=== PATIENT | male | born 1930 | race Caucasian/White ===

== ENCOUNTER 2019-05-07 18:53 | Observation (INO) | payer MEDICARE ==
[2019-05-07 19:23] LABS: Blood, Urine Large (Negative); Leukocyte Large (Negative); Protein, Urine (Dipstick) > or equal to 300 mg/dL (Neg-Trace)
[2019-05-07 19:30] LABS: #Basophils 0.1 thou/uL (0.0-0.2); #Eosinphils 0.2 thou/uL (0.0-0.7); #Lymphocytes 0.9 thou/uL (1.20-3.40); #Monocytes 1.2 thou/uL (0.11-0.59); #Neutrophils 12.1 thou/uL (1.40-6.50); %Basophils 0.4 % (0.0-1.0); %Eosinophils 1.4 % (0.0-10.0); %Lymphocytes 6.1 % (21.0-51.0); %Monocytes 8.2 % (0.0-10.0); %Neutrophils 83.9 % (42.0-75.0); Hemoglobin 13.4 g/dL (14.0-18.0); Mean Corpuscular Hemoglobin 30.3 pg (27.0-31.0); Mean Corpuscular Volume 88.9 fL (78.0-98.0); Mean Platelet Volume 6.9 fL (7.4-10.4); Platelet Count 242 thou/uL (130-400); RBC Distribution Width 13.2 % (11.5-14.5); Red Blood Cell (RBC) Count 4.42 mill/uL (4.70-6.10); White Blood Cell (WBC) Count 14.5 thou/uL (4.8-10.8)
[2019-05-07 19:36] LABS: Clarity Opaque (Clear)
[2019-05-07 19:37] LABS: Bilirubin Unable to Interpret (Negative); Glucose, Urine (Dipstick) Unable to Interpret mg/dL (Negative); Nitrite Unable to Interpret (Negative); Urobilinogen UNABLE TO INTERPRET mg/dL (Less than 2)
[2019-05-07 19:57] LABS: RBC/HPF Greater than 50 HPF (0-3)
[2019-05-07 19:59] LABS: Bacteria/HPF None Seen HPF (None Seen); Squamous Epithelial 0-3 HPF (0-3); WBC/HPF 21-50 HPF (0-3)
[2019-05-07 21:50] LABS: ALT (SGPT) 7 U/L (8-55); AST (SGOT) 18 U/L (5-34); Alkaline Phosphatase 92 U/L (40-110); Anion Gap 17 mmol/L (10-20); BUN (Urea Nitrogen) 37 mg/dL (8.4-25.7); Bilirubin, Total 0.8 mg/dL (0.2-1.2); Calc. Creatinine Clearance 0 mL/min (70-130); Calcium 9.7 mg/dL (7.8-10.44); Carbon Dioxide 19 mmol/L (23-31); Chloride 105 mmol/L (98-107); Estimated GFR-MDRD 26; Globulin 4.1 g/dL (2.4-3.5); Glucose 115 mg/dL (83-110); Protein, Total 8.1 g/dL (5.8-8.1); Sodium 136 mmol/L (136-145)
[2019-05-07] MEDS ORDERED: cefTRIAXone\\ROCEPHIN 1 GM VIAL ONE (22:26)
--- NOTE | 2019-05-07 23:36 | CT ---
NONCONTRAST CT ABDOMEN AND PELVIS: 05/07/19 HISTORY: Hematuria and pain with urination. COMPARISON: None. FINDINGS: Lack of intravenous contrast limits sensitivity for evaluation of the parenchymal organs. There is a small pleural based pulmonary nodule at the right lung base. There is calcified granuloma also present at the right lung base. Bibasilar atelectasis is present. The heart is mildly enlarged. The liver, spleen, pancreas, bilateral adrenal glands, and right kidney demonstrate a normal CT appea andreas. There is a low density lesion seen involving the medial aspect mid portion left kidney measuri ng 1.4 cm which cannot be further characterized on this exam. No renal or ureteral calculi are seen b ilaterally. There is mild nonspecific bilateral perinephric stranding. Innumerable colonic diverticula are seen involving the descending colon as well as the sigmoid colon. Loops of small bowel are normal in caliber. The appendix is not definitely visualized, but there are no secondary signs to suggest appendicitis. No free fluid or free intraperitoneal gas is seen in the abdomen or pelvis. No enlarged lymph nodes are seen by CT size criteria. Incidental noted is made of a circumaortic left renal vein. Vascular calcifications seen in the abdom inal aorta and iliac arteries. There are calcifications seen in the prostate gland. Degenerative changes are seen in the spine. No suspicious lytic or sclerotic osseous lesions are iden tified. IMPRESSION: 1. No renal or ureteral calculi are seen bilaterally, and there is no hydronephrosis. 2. Nonspecific pleural based nodule right lung base measuring 7 mm. 3. Hypodense left renal lesion, statistically likely representing a cyst but cannot be further c haracterized on this nonenhanced CT scan exam. 4. Colonic diverticulosis. 5. Minimal stranding in the central mesentery which is nonspecific but can be seen with mesenter ic panniculitis. 6. Mild enlargement of the prostate gland measuring 5.8 cm in transverse dimensions. POS: OFF
[2019-05-08] MEDS ORDERED: Acetaminophen 650 MG Suppository PR PRN (00:45)
[2019-05-08] MEDS ORDERED: Acetaminophen 325 MG TAB PO PRN (00:45)
[2019-05-08] MEDS ORDERED: Sodium Chloride 0.9% 1,000 ML IV SCH ×2 (00:55→02:30)
[2019-05-08 01:34] VITALS: BMI 30.7
--- NOTE | 2019-05-08 07:12 | HP ---
TIME OF ASSESSMENT: 2300 hours. PRIMARY CARE PHYSICIAN: Dr. Wilhelm. CHIEF COMPLAINT: Blood in urine. HISTORY OF PRESENT ILLNESS: The patient expressing frustration over being assessed by multiple people and examined. He is insisting to "get on with it." He remained abrupt and short with his answers. Mr. Murry is an 88-year-old gentleman, who had sudden onset of gross hematuria this afternoon. The patient states he has not had issues with his prostate, bladder, or kidneys in the past. He has never experienced hematuria before. He denies having any associated dysuria or frequency, however, was noted on the ED note that he complained of dysuria and frequency. The patient is complaining of having chills and feeling cold. Also complaining of pain in his neck from lying on the stretcher in the emergency department. He has not had any recent fevers at home. Denies any abdominal pain or testicular discomfort. He also denies being on any blood thinners. In the emergency department, he underwent laboratory studies, which showed a white count of 14.5, hemoglobin of 13.4, hematocrit of 39.3, and platelet count 242. Neutrophils 83.9. Sodium was 136, potassium 5, BUN 37, creatinine 2.41, and GFR 26. The patient denies having known chronic kidney disease. His glucose was elevated at 115. Lactic acid 1.5. Calcium 9.7. Total bilirubin 0.8, AST 18, ALT 7, alkaline phosphatase 92, and albumin 4. He underwent urinalysis notable for gross hematuria with greater than 300 protein, large blood, large leukocyte esterase, greater than 50 red blood cells, and 21 to 50 white blood cells. He has had a CT of the abdomen and pelvis done, which showed no renal or ureteral calculi bilaterally and no evidence of hydronephrosis. He was noticed to have a nonspecific pleural-based nodule in the right lung base measuring 7 mm. Also a left renal hyperdense lesion was present, felt to represent a cyst. 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 Mild enlargement of the prostate gland was seen, measuring 5.8 cm. The patient was started on IV antibiotics with Rocephin. REVIEW OF SYSTEMS: Difficulty obtaining as the patient is reluctant to answer many questions. PAST MEDICAL HISTORY: Hypertension. PAST SURGICAL HISTORY: 1. 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 2. Growth excised from foot. SOCIAL HISTORY: The patient denies any alcohol use, tobacco use, or illicit drug use. ALLERGIES: NO KNOWN DRUG ALLERGIES. CURRENT MEDICATIONS: 1. Diltiazem. 2. Furosemide. 3. Mometasone. 4. Potassium chloride. PHYSICAL EXAMINATION: GENERAL: The patient appears well developed, in no acute distress, resting on the stretcher. VITAL SIGNS: Temperature 98.1, blood pressure 116/65, pulse 86, respirations 18, and O2 saturation 98% on room air. HEENT: Normocephalic and atraumatic. Pupils are equal, round, and reactive to light. Sclerae without icterus. Oropharynx is clear. NECK: Supple. LUNGS: Clear to auscultation. CARDIAC: Regular rate and rhythm. ABDOMEN: Soft, obese, nontender, nondistended. Normoactive bowel sounds present. No guarding or rigidity. No renal angle tenderness. EXTREMITIES: Notable for trace edema bilaterally. NEUROLOGIC: Alert and oriented x3. SKIN: Normal. Warm and dry. INVESTIGATIONS: As mentioned above in HPI. IMPRESSION AND PLAN: Mr. Murry is an 88-year-old gentleman, who has been referred for management of the following; 1. Gross hematuria. The patient reports passing blood clots. CT abdomen and pelvis was done to rule out any obstructive uropathy and has confirmed there is none. He does have an enlarged prostate. He denies having any history of prostate, kidney, or bladder problems. A consultation has been placed to Urology. We will obtain a bladder scan to ensure he is not retaining any urine. 2. Suspected urinary tract infection. Urinalysis notable for large leukocyte esterase, 21 to 50 white cells, however, unable to assess for nitrites. No bacteria seen. Urine culture sent. The patient is started on IV antibiotics, which we will continue. 3. Acute kidney injury. The patient with a creatinine of 2.41 and GFR of 26. Unsure what his baseline is as we do not have any previous labs to compare to. We will give very gentle IV hydration. The patient with some trace lower extremity edema bilaterally on exam; therefore, we will add on a BNP to assess for any underlying heart failure, which the patient currently denies. If normal, we will bump up the fluids. Consult to Nephrology has been placed. 4. Hypertension. Resume home medications once verified. Monitor blood pressure. 5. Gastrointestinal prophylaxis. Famotidine IV b.i.d. 6. Deep venous thrombosis prophylaxis. Pharmacoprophylaxis contraindicated given bleeding. PT/OT consult placed. 7. Code status, full. Surrogate decision maker is his , Vicky Murry. The patient's case was discussed with Dr. Valenzuela, who agrees with plan of care as described above. Job ID: [id number]
--- NOTE | 2019-05-08 08:06 | PDOC.HOSPP ---
- Subjective Encounter Date: 05/08/19 Encounter Time: 08:05 Subjective: 88 y/o male with HTN admitted with acute onset of gross hematuria. No gross hematuria this morning. Admitted to prostate issues in the past as well as frequencu and dysuria. Also reported chronic bilateral leg edema. No fever. desires to go home. - Objective Vital Signs & Weight: Vital Signs (12 hours) Temp Pulse Resp BP Pulse Ox 05/08/19 01:51 100 05/08/19 00:45 98.6 F 97 18 156/67 H 100 Weight Weight 226 lb 4.8 oz I&O: 05/07/19 05/08/19 05/09/19 06:59 06:59 06:59 Intake Total 780 Balance 780 Result Diagrams: 05/07/19 19:05/07/19 20:53 Hospitalist ROS - Medication Medications: Active Medications Generic Name Dose Route Start Last Admin Trade Name Freq PRN Reason Stop Dose Admin Sodium Chloride 1,000 mls @ 80 mls/hr 05/08/19 00:55 05/08/19 02:53 Normal Saline 0.9% IV 05/08/19 10:00 Not Given .[id number] CYNDIE Sodium Chloride 1,000 mls @ 50 mls/hr 05/08/19 02:30 05/08/19 02:51 Normal Saline 0.9% IV 1,000 mls .Q20H CYNDIE Administration - Exam General Appearance: awake alert Eye: anicteric sclera ENT: normocephalic atraumatic, moist mucosa Neck: supple, no JVD Heart: RRR Respiratory: no wheezes, no rales, no ronchi, normal chest expansion Gastrointestinal: soft, non-tender, normal bowel sounds Extremities: 2+ LE edema Neurological: cranial nerve grossly intact, no focal deficits Psychiatric: A&O x 3 Hosp A/P (1) Gross hematuria Status: Acute (2) NATALIO (acute kidney injury) Code(s): N17.9 - ACUTE KIDNEY FAILURE, UNSPECIFIED Status: Acute (3) HTN (hypertension) Code(s): I10 - ESSENTIAL (PRIMARY) HYPERTENSION Status: Acute (4) CKD (chronic kidney disease) Code(s): N18.9 - CHRONIC KIDNEY DISEASE, UNSPECIFIED Status: Acute (5) BPH (benign prostatic hyperplasia) Code(s): N40.0 - BENIGN PROSTATIC HYPERPLASIA WITHOUT LOWER URINRY TRACT SYMP Status: Acute (6) Bilateral edema of lower extremity Code(s): R60.0 - LOCALIZED EDEMA Status: Acute - Plan Continue IVF get repeat CBC and BMP as well as phosp and PTH Awaiting Urology and Nephrology input Start sodium bicar by mouth Get doppler of lower extremities DVT prophylaxis with SCD
[2019-05-08 08:34] LABS: #Lymphocytes 0.8 thou/uL (1.20-3.40); #Monocytes 1.5 thou/uL (0.11-0.59); #Neutrophils 14.3 thou/uL (1.40-6.50); %Basophils 0.1 % (0.0-1.0); %Eosinophils 0.2 % (0.0-10.0); %Lymphocytes 4.5 % (21.0-51.0); %Monocytes 9.1 % (0.0-10.0); %Neutrophils 86.1 % (42.0-75.0); Mean Corpuscular HGB CONC 33.6 g/dL (32.0-36.0); Mean Corpuscular Volume 89.2 fL (78.0-98.0); Platelet Count 215 thou/uL (130-400); RBC Distribution Width 13.1 % (11.5-14.5); Red Blood Cell (RBC) Count 4.01 mill/uL (4.70-6.10); White Blood Cell (WBC) Count 16.6 thou/uL (4.8-10.8)
[2019-05-08 08:46] LABS: Albumin 3.3 g/dL (3.4-4.8)
[2019-05-08 08:47] LABS: Chloride 106 mmol/L (98-107); Potassium 4.5 mmol/L (3.5-5.1); Sodium 135 mmol/L (136-145)
[2019-05-08 08:48] LABS: Glucose 126 mg/dL (83-110)
[2019-05-08 08:49] LABS: Globulin 3.6 g/dL (2.4-3.5); Protein, Total 6.9 g/dL (5.8-8.1)
[2019-05-08 08:50] LABS: ALT (SGPT) Less than 7 U/L (8-55); AST (SGOT) 14 U/L (5-34); Alkaline Phosphatase 77 U/L (40-110); Anion Gap 18 mmol/L (10-20); BUN (Urea Nitrogen) 36 mg/dL (8.4-25.7); Bilirubin, Total 0.9 mg/dL (0.2-1.2); Calc. Creatinine Clearance 34 mL/min (70-130); Carbon Dioxide 16 mmol/L (23-31); Estimated GFR-MDRD 28
[2019-05-08 08:55] VITALS: BP 116/57
[2019-05-08] MEDS ORDERED: Famotidine/PF 20 mg/2ml Vial SLOW IVP SCH (09:00)
[2019-05-08] MEDS ORDERED: Sodium Bicarbonate Tab 325 MG TAB PO SCH (09:00)
[2019-05-08 09:58] VITALS: TEMP 97.8
--- NOTE | 2019-05-08 10:31 | CON ---
DATE OF CONSULTATION: REASON FOR CONSULTATION: Elevated creatinine. HISTORY OF PRESENT ILLNESS: An 88-year-old gentleman presented to the hospital and was noted to have hematuria. The patient's creatinine was 2.4. The patient had a chronic history of NSAID use, which he stopped a couple of weeks ago. The patient denies any complaints like chest pain, nausea, or vomiting. PAST MEDICAL HISTORY: Significant for tumor, hypertension. SOCIAL HISTORY: No alcohol or drug use. FAMILY HISTORY: Negative for ESRD. ALLERGIES: REVIEWED. MEDICATIONS: Home medication list reviewed. Hospital medications reviewed. REVIEW OF SYSTEMS: Fifteen-point review of systems was performed and was negative except for positives noted above. GENERAL: HEAD: NECK: No swelling or lumps. NOSE: No epistaxis or discharge. EYES: No diplopia or pain. RESPIRATORY: CARDIOVASCULAR: GASTROINTESTINAL: /FINISHER POLISHER: MUSCULOSKELETAL: No joint pain. NEUROPSYCHIATIC SYSTEMS: No suicidal ideation. No ideation. SKIN: Denies any rash or ulcer. CONSTITUTIONAL: No fever or chills. PHYSICAL EXAMINATION: GENERAL: The patient is awake and alert. VITAL SIGNS: Afebrile, pulse 100, breathing 16, blood pressure was 156/67. GENERAL APPEARANCE AND MENTAL STATUS: Fair. HEAD/NECK: Normocephalic. Atraumatic. EYES: EOMI. No deformity. EARS: Clear. No ulcers. NOSE: Intact. No lesions. MOUTH: Clear. No discharge. THROAT: Clear. No exudate. LUNGS: Clear. No crackles. CARDIAC: S1, S2. No rub. ABDOMEN: Benign. Bowel sounds positive. GENITALIA/RECTUM: Santana absent. BACK/EXTREMITIES: Edema 0+. NEUROLOGICAL: Alert and motor intact. SKIN: LYMPHATICS: LABORATORY DATA: Reviewed. ASSESSMENT: 1. Acute kidney injury on chronic kidney disease, most likely due to nonsteroidal anti-inflammatory drugs use versus other causes. Continue gentle hydration. We will repeat labs. 2. Hypertension, stable. 3. Anemia, stable. 4. Proteinuria. Could be because of blood. We will need to repeat that. 5. Medication based on GFR appropriate. Job ID: [id number]
[2019-05-08] MEDS ORDERED: cefTRIAXone\\ROCEPHIN 1 GM in Sodium Chloride 0.9% 100 ML IVPB SCH (22:00)
--- NOTE | 2019-05-10 06:18 | DIS ---
DATE OF ADMISSION: 05/08/2019 DATE OF DISCHARGE: 05/08/2019 DISCHARGE DIAGNOSES: 1. Gross hematuria. 2. Acute kidney injury. 3. Hypertension. 4. Chronic kidney disease. 5. Benign prostatic hyperplasia. 6. Bilateral lower extremity edema. 7. Anemia. 8. Proteinuria. CONSULTS: 1. Nephrology. 2. Urology. HOSPITAL COURSE: An 88-year-old male patient with known history of hypertension, admitted with acute onset of gross hematuria as well as urinary frequency. The patient also has chronic bilateral leg edema. Gross hematuria spontaneously subsided. The patient was, however, found to have acute elevation in creatinine. He was started with IV fluid with marginal improvement in creatinine. Nephrology and Urology consults were requested. The patient was seen by Nephrology, but subsequently he got inpatient and left against medical advice. Job ID: [id number]
== END 2019-05-08 09:50 | disposition left against medical advice (07) ==
LOC: ERS 18:53 → ONC 05-08 00:52
PROVIDERS: ADMIT Internal Medicine; ATTEND Internal Medicine
DX: R31.0 Gross hematuria (principal); I12.9 Hypertensive chronic kidney disease with stage 1 through stage 4 chronic kidney disease, or unspecified chronic kidney disease; N18.9 Chronic kidney disease, unspecified; N17.9 Acute kidney failure, unspecified; D63.1 Anemia in chronic kidney disease; N40.0 Benign prostatic hyperplasia without lower urinary tract symptoms; R60.0 Localized edema; R80.9 Proteinuria, unspecified; K57.30 Diverticulosis of large intestine without perforation or abscess without bleeding; R91.1 Solitary pulmonary nodule; N28.89 Other specified disorders of kidney and ureter; Z79.899 Other long term (current) drug therapy
CPT/HCPCS: 36415; 74176; 80053; 81003; 81015; 83605; 83735; 83880; 83970; 84100; 85025; 96361; 96365; G0378; J0696

== ENCOUNTER 2020-12-21 08:49 | Inpatient (IN) | payer MEDICARE ==
[2020-12-21 09:59] LABS: #Eosinphils 0.2 thou/uL (0.0-0.7); #Lymphocytes 0.6 thou/uL (1.20-3.40); #Monocytes 0.5 thou/uL (0.11-0.59); #Neutrophils 3.9 thou/uL (1.40-6.50); %Eosinophils 3.4 % (0.0-10.0); %Lymphocytes 10.8 % (21.0-51.0); %Monocytes 9.6 % (0.0-10.0); %Neutrophils 76.3 % (42.0-75.0); Hemoglobin 14.6 g/dL (14.0-18.0); Mean Corpuscular HGB CONC 30.8 g/dL (32.0-36.0); Mean Corpuscular Hemoglobin 29.4 pg (27.0-31.0); Mean Corpuscular Volume 95.6 fL (78.0-98.0); Mean Platelet Volume 7.7 fL (7.4-10.4); Platelet Count 149 thou/uL (130-400); RBC Distribution Width 12.8 % (11.5-14.5); Red Blood Cell (RBC) Count 4.96 mill/uL (4.70-6.10); White Blood Cell (WBC) Count 5.1 thou/uL (4.8-10.8)
[2020-12-21 10:23] LABS: ALT (SGPT) 9 U/L (8-55); AST (SGOT) 23 U/L (5-34); Albumin 3.3 g/dL (3.4-4.8); Alkaline Phosphatase 96 U/L (40-110); Anion Gap 14 mmol/L (10-20); BUN (Urea Nitrogen) 23 mg/dL (8.4-25.7); Calc. Creatinine Clearance 0 mL/min (70-130); Calcium 8.9 mg/dL (7.8-10.44); Carbon Dioxide 21 mmol/L (23-31); Chloride 110 mmol/L (98-107); Globulin 3.2 g/dL (2.4-3.5); Glucose 94 mg/dL (83-110); Potassium 3.7 mmol/L (3.5-5.1); Protein, Total 6.5 g/dL (5.8-8.1); Sodium 141 mmol/L (136-145)
[2020-12-21] MEDS ORDERED: Cefepime 2 GM VIAL ONE (12:00)
[2020-12-21] MEDS ORDERED: Vancomycin 1 GM/200 ML BAG ONE (12:00)
[2020-12-21] MEDS ORDERED: Furosemide 40 MG/4 ML VIAL ONE (12:00)
[2020-12-21] MEDS ORDERED: Nitroglycerin 2% Ointment 1 INCH/1 GM Packet ONE (12:00)
[2020-12-21 12:30] LABS: CKMB 4.4 ng/mL (0-6.6)
[2020-12-21 12:37] LABS: CK (CPK) 313 U/L (30-200); Lipase 9 U/L (8-78)
[2020-12-21] MEDS ORDERED: Aspirin Chewable 81 MG TAB ONE (14:00)
[2020-12-21 14:16] LABS: Troponin I 0.021 ng/mL (< 0.028)
[2020-12-21] MEDS ORDERED: Bisacodyl 10 MG SUPP PR PRN (15:56)
[2020-12-21] MEDS ORDERED: Ondansetron PF 4 MG/2 ML Vial IVP PRN (15:56)
[2020-12-21] MEDS ORDERED: Senokot S 8.6-50 MG TAB PO PRN (15:56)
[2020-12-21] MEDS ORDERED: Calcium Carbonate 500 MG ChewTAB PO PRN (15:56)
[2020-12-21] MEDS ORDERED: Ondansetron ODT 4 MG TAB PO PRN (15:56)
[2020-12-21] MEDS ORDERED: Furosemide 100 MG in Sodium Chloride 0.9% 90 ML IVPB SCH (16:00)
[2020-12-21] MEDS ORDERED: Labetalol HCl 100 MG/20 ML VIAL SLOW IVP PRN (16:02)
[2020-12-21 18:58] VITALS: BMI 33.0
[2020-12-21] MEDS ORDERED: Magnesium Sulfate 4 GM in Sodium Chloride 0.9% 250 ML 250 ML IVPB SCH (19:45)
[2020-12-21] MEDS: Doxycycline 100 MG CAP PO SCH (20:47)
[2020-12-22 00:17] LABS: Bilirubin Negative (Negative); Blood, Urine Moderate (Negative); Glucose, Urine (Dipstick) Negative (Negative); Ketone, Urine Negative (Negative); Leukocyte Moderate (Negative); Nitrite Negative (Negative); Protein, Urine (Dipstick) 100 mg/dL (Neg-Trace); Urobilinogen 0.2 mg/dL (Less than 2); pH, Urine 5.5 (5.0-9.0)
[2020-12-22 00:25] LABS: Clarity Clear (Clear)
[2020-12-22 00:30] LABS: Squamous Epithelial 0-3 HPF (0-3); WBC/HPF Greater than 50 HPF (0-3)
[2020-12-22 00:32] LABS: Bacteria/HPF 1+ HPF (None Seen)
[2020-12-22 04:55] LABS: ALT (SGPT) Less than 7 U/L (8-55); AST (SGOT) 29 U/L (5-34); Albumin 2.5 g/dL (3.4-4.8); Alkaline Phosphatase 71 U/L (40-110); Anion Gap 16 mmol/L (10-20); BUN (Urea Nitrogen) 26 mg/dL (8.4-25.7); Bilirubin, Total 0.8 mg/dL (0.2-1.2); CRP (Inflammatory) 3.06 mg/dL (= or < 0.5); Calc. Creatinine Clearance 38 mL/min (70-130); Calcium 7.7 mg/dL (7.8-10.44); Carbon Dioxide 21 mmol/L (23-31); Chloride 109 mmol/L (98-107); Globulin 2.7 g/dL (2.4-3.5); Glucose 98 mg/dL (83-110); Magnesium 2.3 mg/dL (1.6-2.6); Potassium 4.5 mmol/L (3.5-5.1); Protein, Total 5.2 g/dL (5.8-8.1); Sodium 141 mmol/L (136-145)
[2020-12-22 06:52] LABS: #Basophils 0.1 thou/uL (0.0-0.2); #Eosinphils 0.2 thou/uL (0.0-0.7); #Lymphocytes 0.8 thou/uL (1.20-3.40); #Monocytes 1.2 thou/uL (0.11-0.59); #Neutrophils 7.1 thou/uL (1.40-6.50); %Basophils 0.6 % (0.0-1.0); %Eosinophils 1.9 % (0.0-10.0); %Lymphocytes 8.6 % (21.0-51.0); %Monocytes 13.2 % (0.0-10.0); %Neutrophils 75.8 % (42.0-75.0); Hemoglobin 10.8 g/dL (14.0-18.0); Mean Corpuscular HGB CONC 33.2 g/dL (32.0-36.0); Mean Corpuscular Hemoglobin 31.8 pg (27.0-31.0); Mean Corpuscular Volume 95.9 fL (78.0-98.0); Mean Platelet Volume 7.6 fL (7.4-10.4); Platelet Count 213 thou/uL (130-400); RBC Distribution Width 12.3 % (11.5-14.5); White Blood Cell (WBC) Count 9.4 thou/uL (4.8-10.8)
[2020-12-22] MEDS ORDERED: Enoxaparin Sodium 40 MG/0.4 ML SYRINGE SC SCH (09:00)
[2020-12-22] MEDS: Saccharomyces boulardii 250 MG CAP PO SCH (10:02)
[2020-12-22] MEDS: Doxycycline 100 MG CAP PO SCH ×2 (10:02→20:40)
[2020-12-22] MEDS: Enoxaparin Sodium 30 MG/0.3 ML SYRINGE SC SCH (10:03)
[2020-12-22] MEDS: Aspirin 81 mg Enteric Coated Tablet PO SCH (10:03)
[2020-12-22] MEDS: Multivit, Therapeutic 1 TAB PO SCH (10:03)
[2020-12-22] MEDS ORDERED: Cefepime 1 GM in Sodium Chloride 0.9% 100 ML IVPB SCH (12:00)
[2020-12-22] MEDS: Furosemide 20 MG TAB PO SCH ×2 (14:41→20:40)
[2020-12-22 16:41] LABS: Anion Gap 16 mmol/L (10-20); BUN (Urea Nitrogen) 29 mg/dL (8.4-25.7); Calc. Creatinine Clearance 35 mL/min (70-130); Calcium 8.8 mg/dL (7.8-10.44); Carbon Dioxide 23 mmol/L (23-31); Chloride 105 mmol/L (98-107); Glucose 104 mg/dL (83-110); Potassium 3.5 mmol/L (3.5-5.1); Sodium 140 mmol/L (136-145)
[2020-12-22 18:29] LABS: #Eosinphils 0.3 thou/uL (0.0-0.7); #Lymphocytes 1.1 thou/uL (1.20-3.40); #Neutrophils 7.4 thou/uL (1.40-6.50); %Basophils 0.2 % (0.0-1.0); %Eosinophils 2.7 % (0.0-10.0); %Lymphocytes 11.2 % (21.0-51.0); %Monocytes 10.2 % (0.0-10.0); %Neutrophils 75.7 % (42.0-75.0); Hemoglobin 11.3 g/dL (14.0-18.0); Mean Corpuscular HGB CONC 34.4 g/dL (32.0-36.0); Mean Corpuscular Hemoglobin 32.4 pg (27.0-31.0); Mean Corpuscular Volume 94.3 fL (78.0-98.0); Mean Platelet Volume 7.5 fL (7.4-10.4); Platelet Count 259 thou/uL (130-400); RBC Distribution Width 12.2 % (11.5-14.5); Red Blood Cell (RBC) Count 3.49 mill/uL (4.70-6.10); White Blood Cell (WBC) Count 9.8 thou/uL (4.8-10.8)
[2020-12-22 19:33] LABS: Anion Gap 17 mmol/L (10-20); BUN (Urea Nitrogen) 31 mg/dL (8.4-25.7); Calc. Creatinine Clearance 34 mL/min (70-130); Calcium 8.7 mg/dL (7.8-10.44); Carbon Dioxide 25 mmol/L (23-31); Chloride 104 mmol/L (98-107); Glucose 122 mg/dL (83-110); Potassium 3.5 mmol/L (3.5-5.1); Sodium 142 mmol/L (136-145)
[2020-12-23] MEDS: Furosemide 20 MG TAB PO SCH (05:03)
[2020-12-23] MEDS: Acetaminophen 325 MG TAB PO PRN (05:18)
[2020-12-23] MEDS: traMADol HCl 50 MG TAB PO PRN (06:12)
[2020-12-23] MEDS: Saccharomyces boulardii 250 MG CAP PO SCH (08:29)
[2020-12-23] MEDS: Doxycycline 100 MG CAP PO SCH ×2 (08:29→21:20)
[2020-12-23] MEDS: Multivit, Therapeutic 1 TAB PO SCH (08:29)
[2020-12-23] MEDS: Enoxaparin Sodium 30 MG/0.3 ML SYRINGE SC SCH (08:32)
[2020-12-23] MEDS: Aspirin 81 mg Enteric Coated Tablet PO SCH (08:35)
[2020-12-23] MEDS: Cyclobenzaprine 10 MG TAB PO SCH ×3 (08:38→21:20)
[2020-12-23] MEDS ORDERED: Potassium Chloride 20 MEQ TAB PO SCH ×3 (09:00→13:30)
[2020-12-23] MEDS: hydrALAZINE 25 MG TAB PO SCH ×3 (09:46→23:50)
[2020-12-23] MEDS ORDERED: Diazepam 2 MG TAB PO SCH (10:15)
[2020-12-23 12:28] LABS: ALT (SGPT) 11 U/L (8-55); AST (SGOT) 40 U/L (5-34); Albumin 3.3 g/dL (3.4-4.8); Alkaline Phosphatase 93 U/L (40-110); Anion Gap 15 mmol/L (10-20); BUN (Urea Nitrogen) 33 mg/dL (8.4-25.7); Bilirubin, Total 1.2 mg/dL (0.2-1.2); Calc. Creatinine Clearance 34 mL/min (70-130); Calcium 8.6 mg/dL (7.8-10.44); Carbon Dioxide 24 mmol/L (23-31); Chloride 103 mmol/L (98-107); Globulin 3.3 g/dL (2.4-3.5); Glucose 129 mg/dL (83-110); Magnesium 1.9 mg/dL (1.6-2.6); Potassium 2.9 mmol/L (3.5-5.1); Protein, Total 6.6 g/dL (5.8-8.1); Sodium 139 mmol/L (136-145)
[2020-12-23] MEDS ORDERED: Furosemide 40 MG/4 ML VIAL SLOW IVP SCH (14:00)
[2020-12-23] MEDS: Furosemide 40 MG/4 ML VIAL SLOW IVP SCH ×3 (14:53→23:50)
[2020-12-23 18:39] LABS: Anion Gap 17 mmol/L (10-20); BUN (Urea Nitrogen) 35 mg/dL (8.4-25.7); Calc. Creatinine Clearance 32 mL/min (70-130); Calcium 8.8 mg/dL (7.8-10.44); Carbon Dioxide 25 mmol/L (23-31); Chloride 103 mmol/L (98-107); Glucose 130 mg/dL (83-110); Potassium 3.7 mmol/L (3.5-5.1); Sodium 141 mmol/L (136-145)
[2020-12-24] MEDS: Doxycycline 100 MG CAP PO SCH ×2 (08:16→21:02)
[2020-12-24] MEDS: Enoxaparin Sodium 30 MG/0.3 ML SYRINGE SC SCH (08:16)
[2020-12-24] MEDS: hydrALAZINE 25 MG TAB PO SCH ×3 (08:16→21:03)
[2020-12-24] MEDS: Aspirin 81 mg Enteric Coated Tablet PO SCH (08:16)
[2020-12-24] MEDS: Multivit, Therapeutic 1 TAB PO SCH (08:17)
[2020-12-24] MEDS: Furosemide 40 MG/4 ML VIAL SLOW IVP SCH ×2 (08:17→15:49)
[2020-12-24] MEDS: Saccharomyces boulardii 250 MG CAP PO SCH (08:17)
[2020-12-24] MEDS: traMADol HCl 50 MG TAB PO PRN (21:03)
[2020-12-25] MEDS: Furosemide 40 MG/4 ML VIAL SLOW IVP SCH ×2 (06:30→14:13)
[2020-12-25] MEDS: Acetaminophen 325 MG TAB PO PRN ×3 (06:36→20:42)
[2020-12-25] MEDS: Doxycycline 100 MG CAP PO SCH ×2 (08:25→20:42)
[2020-12-25] MEDS: Multivit, Therapeutic 1 TAB PO SCH (08:25)
[2020-12-25] MEDS: Saccharomyces boulardii 250 MG CAP PO SCH (08:25)
[2020-12-25] MEDS: Enoxaparin Sodium 30 MG/0.3 ML SYRINGE SC SCH (08:26)
[2020-12-25] MEDS: Aspirin 81 mg Enteric Coated Tablet PO SCH (08:26)
[2020-12-25] MEDS: hydrALAZINE 25 MG TAB PO SCH ×3 (08:26→20:43)
[2020-12-25] MEDS ORDERED: Cefdinir 300 MG CAP PO SCH (21:00)
[2020-12-26] MEDS: Enoxaparin Sodium 30 MG/0.3 ML SYRINGE SC SCH (08:44)
[2020-12-26] MEDS: Acetaminophen 325 MG TAB PO PRN (08:44)
[2020-12-26] MEDS: Aspirin 81 mg Enteric Coated Tablet PO SCH (08:44)
[2020-12-26] MEDS: hydrALAZINE 25 MG TAB PO SCH (08:44)
[2020-12-26] MEDS: Saccharomyces boulardii 250 MG CAP PO SCH (08:44)
[2020-12-26] MEDS: Doxycycline 100 MG CAP PO SCH (08:44)
[2020-12-26] MEDS: Multivit, Therapeutic 1 TAB PO SCH (08:44)
[2020-12-26] MEDS: Furosemide 40 MG/4 ML VIAL SLOW IVP SCH (08:45)
[2020-12-26 11:46] VITALS: BP 131/66; TEMP 97.7
== END 2020-12-26 12:38 | disposition home health service (06) | DRG 602 ==
LOC: ERS 08:49 → ERHOLD 12:52 → 2NO 18:31
PROVIDERS: ADMIT Internal Medicine; ATTEND Family Medicine
DX: L03.116 Cellulitis of left lower limb (principal); I50.33 Acute on chronic diastolic (congestive) heart failure; I13.0 Hypertensive heart and chronic kidney disease with heart failure and stage 1 through stage 4 chronic kidney disease, or unspecified chronic kidney disease; I48.20 Chronic atrial fibrillation, unspecified; N18.4 Chronic kidney disease, stage 4 (severe); L03.115 Cellulitis of right lower limb; I87.8 Other specified disorders of veins; I07.1 Rheumatic tricuspid insufficiency; Z79.899 Other long term (current) drug therapy; Z79.82 Long term (current) use of aspirin; Z91.14 Patient's other noncompliance with medication regimen
CPT/HCPCS: 36415; 71045; 80053; 81001; 82550; 82553; 83605; 83690; 83735; 83880; 84443; 84484; 85025; 86140; 87040; 93005; 93306; 96365; 96367; 96375; J0692; J1650; J1940; J3370; J3475; J3490; J7050